=== PATIENT | male | born 1950 | race Caucasian/White ===

== ENCOUNTER 2016-05-30 01:36 | Observation (INO) | payer OTHER ==
--- NOTE | 2016-05-30 01:59 | EDPHY ---
H & P Stated Complaint: [facility] fall on hip HPI/ROS: HPI CHIEF COMPLAINT: Back pain status post mechanical fall HISTORY OF PRESENT ILLNESS: this patient is a 65-year-old male, significant past medical history for COPD, remote history of a lumbar laminectomy, tinnitus , presents emergency room after he sustained a mechanical trip and fall on the ice yesterday at 4:30 a.m.. Tells me he had no head strike. Tells me that he landed on his backside gluteus region and lumbar spine. He tells me initially had pain however he was able to walk it off and tolerated however it has been persistent and getting worse. He describes the pain as sharp stabbing right gluteus posterior right gluteus and paravertebral lumbar region that then radiates down his right gluteus and across his right thigh and into his groin. He denies the pain going blow his knee. He denies leg weakness, denies saddle anesthesia, denies bowel or bladder incontinence. He tells me the pain is quite severe 10/10 sharp stabbing in nature. It is worse when he lays flat it is better when he stands up. It is worse when he moves his right leg. Denies any other areas of trauma. He denies midline lumbar pain. He admits paravertebral lumbar. Past Medical History: COPD, Tinnitus Past Surgical History: remote history of lumbar laminectomy Social History: denies use of drugs alcohol tobacco products Family History: noncontributory ROS REVIEW OF SYSTEMS: A comprehensive 10 point review of systems is otherwise negative aside from elements mentioned in the history of present illness. Exam Constitutional triage nursing summary reviewed, vital signs reviewed, awake/ alert. Eyes normal conjunctivae and sclera, EOMI, PERRLA. HENT normal inspection, atraumatic, moist mucus membranes, no epistaxis, neck supple/ no meningismus, no raccoon eyes. Respiratory clear to auscultation bilaterally, normal breath sounds, no respiratory distress, no wheezing. Cardiovascular rate normal, regular rhythm, no murmur, no edema, distal pulses normal. Gastrointestinal soft, non-tender, no rebound, no guarding, normal bowel sounds, no distension, no pulsatile mass. Genitourinary no CVA tenderness. Musculoskeletal tender palpation paravertebral lumbar region left-sided, also tenderness palpation down the gluteus left cheek midline, good leg strength, able to ambulate and walk, no saddle anesthesia, there is no midline tenderness or crepitus full range of motion, no calf swelling, no tenderness of extremities , no meningismus, good pulses, neurovascularly intact. Skin pink, warm, & dry, no rash, skin atraumatic. Neurologic awake, alert and oriented x 3, AAOx3, moves all 4 extremities equally, motor intact, sensory intact, CN II-XII intact, normal cerebellar, normal vision, normal speech. Psychiatric normal mood/affect. Heme/Lymph/Immune no lymphadenopathy. Differential Diagnosis: includes but is not limited to in a particular order, degenerative joint disease, compression fracture, nerve root compression, annular tear, sciatica Medical Decision Making: this patient had an IV established will be medicated with 100 mcg IV fentanyl for pain control, 2.5 mg IV Valium for muscle spasm, we will obtain a x-ray of the right hip and x-ray of the lumbar spine. This is to rule out compression fracture significant malalignment. Check basic blood work including urinalysis. He will be hydrated IV fluids. We will re-evaluate after pain medicine. Re-evaluation: 0401: Re-examination at this time this patient complaining of back pain initially did get better after 100 mcg IV fentanyl he did receive Dilaudid 1 mg however this did not improve much his back pain is back pain started to get worse. He is requesting more pain medicine. I have ordered him another 200 mcg IV fentanyl, IV Toradol 30 mg, IV Solu-Medrol and Valium. Due to his worsening ongoing back pain he has no acute signs of cauda equina I have ordered MRI. ED x-ray lumbar spine: degenerative joint disease noted, no evidence of compression fracture. Image interpreted by myself ED x-ray right hip Right hip: negative for acute fracture. image interpreted by myself 0440: re-examination at this time this patient is resting comfortably in no acute distress. He feels much better after 200 mcg IV fentanyl, IV Toradol, IV Valium and IV Solu-Medrol. Again he has no signs of acute cauda equina syndrome however given due to severe nature pain ongoing pain unable to ambulate I have ordered an MRI of his lumbar spine. 0607: re-examination: patient is back from MRI he is having ongoing pain. He is requesting more pain medicine. I have ordered him another 1 mg IV Dilaudid and IV Valium 2.5 mg MRI of the lumbar spine without contrast . The results of the study are shows multi degenerative disc disease however nothing explained acute sciatic pain. However on his MRI does show a very large psoas muscle this concerning for possible bleed into the psoas muscle recommend CT abdomen pelvis with IV contrast . I discussed the results of this study with the radiologist Dr. Dixon 0647: reported to me by Dr. Dixon CT scan CT abdomen pelvis with IV contrast this shows a very large right psoas muscle hemorrhage it is 21 cm in length by 8.8 x 7 cm. There is evidence of some retroperitoneal bleed. According to Dr. Dixon there is no brisk bleed at this time on arterial phase however on a 90 second delay there is still some bleeding. 0648: at this time this patient has been moved her ER room to a 2nd IV is being established. He has already been typed and screen his blood pressure is completely stable at this time. I will consult Trauma surgery as well as Interventional Radiology. 0651: Spoke with Dr. Sutton at this time with IR. Recommend admission. Watch closely. Does not feel this is an IR case. 0657: I spoke with Dr. Sim with Trauma surgery. He will see and evaluate this patient. He does recommend admission to the hospital for observation to the psoas muscle hematoma. Currently at this time this patient is hemodynamically stable no acute distress resting comfortably. Pain control. Blood pressure appropriate. He is typed and screened. He has 2 large-bore IVs. Patient understands he will need admission for pain control and observation. EKG interpretation by me on record in [employer] system. Impression time of EKG is 6:53 a.m., this is sinus rhythm rate of 73, no acute ischemic changes. Specifically no ST elevation, ST depression, T-wave abnormalities or prolonged intervals. Unremarkable EKG. Source: Patient - Personal History Current Tetanus/Diphtheria Vaccine: Yes Current Tetanus Diphtheria and Acellular Pertussis (TDAP): Yes - Medical/Surgical History Hx Asthma: No Hx Chronic Respiratory Disease: No Hx Diabetes: No Hx Cardiac Disease: No Hx Renal Disease: No Hx Cirrhosis: No Hx Alcoholism: No Hx HIV/AIDS: No Hx Splenectomy or Spleen Trauma: No Other PMH: hypothyroid, COPD, RA, tinitis, - Social History Smoking Status: Former smoker Constitutional: Initial Vital Signs Temperature (C) 36.4 C 05/30/16 01:45 Heart Rate 62 05/30/16 01:45 Respiratory Rate 18 05/30/16 01:45 Blood Pressure 147/98 H 05/30/16 01:45 O2 Sat (%) 100 05/30/16 01:45 O2 Delivery Mode Nasal Cannula O2 (L/minute) 2 Allergies/Adverse Reactions: No Known Allergies Allergy (Unverified 05/30/16 01:42) Home Medications: Medication Instructions Recorded Ibuprofen [Motrin (*)] 200 - 800 mg PO Q4-6PRN PRN 05/30/16 Levothyroxine [Synthroid 100 mcg 100 mcg PO DAILY06 05/30/16 (*)] Omeprazole [Prilosec 20 mg] 40 mg PO DAILY 05/30/16 oxyCODONE IR [Oxycodone Ir (*)] 10 mg PO Q4HRS PRN #20 tab 05/31/16 Medical Decision Making - Data Points Laboratory Results: Laboratory Results 05/30/16 02:25 05/30/16 02:25 Medications Given: Discontinued Medications Diazepam (Valium Injection) 2.5 mg IVP EDNOW ONE Stop: 05/30/16 02:13 Last Admin: 05/30/16 02:25 Dose: 2.5 mg Diazepam (Valium Injection) 2.5 mg IVP EDNOW ONE Stop: 05/30/16 06:07 Last Admin: 05/30/16 06:34 Dose: Not Given Fentanyl (Sublimaze) 100 mcg IVP EDNOW ONE Stop: 05/30/16 02:12 Last Admin: 05/30/16 02:28 Dose: 100 mcg Fentanyl (Sublimaze) 200 mcg IVP EDNOW ONE Stop: 05/30/16 03:40 Last Admin: 05/30/16 03:45 Dose: 200 mcg Fentanyl (Sublimaze) 100 mcg IVP EDNOW ONE Stop: 05/30/16 05:03 Last Admin: 05/30/16 05:04 Dose: 100 mcg Fentanyl (Sublimaze) 100 mcg IVP EDNOW ONE Stop: 05/30/16 05:30 Last Admin: 05/30/16 06:34 Dose: Not Given Fentanyl (Sublimaze) 200 mcg IVP EDNOW ONE Stop: 05/30/16 07:16 Last Admin: 05/30/16 07:16 Dose: 200 mcg Fentanyl (Sublimaze) 100 mcg IVP EDNOW ONE Stop: 05/30/16 08:16 Last Admin: 05/30/16 08:25 Dose: 100 mcg Hydromorphone HCl (Dilaudid) 1 mg IVP EDNOW ONE Stop: 05/30/16 03:18 Last Admin: 05/30/16 03:26 Dose: 1 mg Hydromorphone HCl (Dilaudid) 1 mg IVP EDNOW ONE Stop: 05/30/16 06:07 Last Admin: 05/30/16 06:34 Dose: 1 mg Hydromorphone HCl (Dilaudid) 1 mg IVP EDNOW ONE Stop: 05/30/16 08:01 Last Admin: 05/30/16 09:18 Dose: 1 mg Sodium Chloride (Ns) 1,000 mls @ 0 mls/hr IV ONCE ONE PRN Reason: Wide Open Stop: 05/30/16 02:12 Last Admin: 05/30/16 02:28 Dose: 1,000 mls Sodium Chloride (Ns) 500 mls @ 0 mls/hr IV ONCE ONE PRN Reason: Wide Open Stop: 05/30/16 03:40 Last Admin: 05/30/16 03:45 Dose: 500 mls Lactated Ringer's (Lr) 1,000 mls @ 125 mls/hr IV CONT YUSRA Stop: 11/26/16 08:29 Last Admin: 05/30/16 11:00 Dose: 1,000 mls Ketorolac Tromethamine (Toradol) 30 mg IVP EDNOW ONE Stop: 05/30/16 03:40 Last Admin: 05/30/16 03:55 Dose: 30 mg Levothyroxine Sodium (Synthroid) 100 mcg PO DAILY06 YUSRA Stop: 11/27/16 09:29 Last Admin: 05/31/16 09:50 Dose: Not Given Methylprednisolone Sodium Succinate (Solu-Medrol) 125 mg IVP EDNOW ONE Stop: 05/30/16 03:40 Last Admin: 05/30/16 03:50 Dose: 125 mg Ondansetron HCl (Zofran) 4 mg IVP EDNOW ONE Stop: 05/30/16 02:12 Last Admin: 05/30/16 02:25 Dose: 4 mg Oxycodone HCl (Oxycontin) 20 mg PO BID [facility] Stop: 06/09/16 08:59 Last Admin: 05/31/16 09:13 Dose: Not Given Oxycodone HCl (Oxycodone Ir) 10 mg PO Q4HRS PRN PRN Reason: Pain, Severe Able to Take PO Stop: 06/09/16 08:26 Last Admin: 05/30/16 17:52 Dose: 10 mg Oxycodone/Acetaminophen (Percocet 5/325) 1 tab PO EDNOW ONE Stop: 05/30/16 08:23 Last Admin: 05/30/16 08:33 Dose: 1 tab Pantoprazole Sodium (Protonix) 40 mg PO DAILY [facility] Stop: 11/27/16 09:29 Last Admin: 05/31/16 09:50 Dose: 40 mg Senna/Docusate Sodium (Senokot-S) 2 tab PO BID [facility] Stop: 11/27/16 09:29 Last Admin: 05/31/16 09:50 Dose: 2 tab Departure - Departure Disposition: [facility] Inpatient Acute Clinical Impression: Hematoma Back pain Qualifiers: Back pain location: low back pain Chronicity: acute Back pain laterality: right Sciatica presence: with sciatica Sciatica laterality: sciatica of right side Qualifier Code: (M54.41) Lumbago with sciatica, right side Psoas muscle strain Qualifiers: Encounter type: initial encounter Laterality: right Qualifier Code: (S76.011A) Strain of muscle, fascia and tendon of right hip, initial encounter Condition: Good
[2016-05-30] MEDS ORDERED: fentaNYL 100 MCG/2 ML INJ ONE ×3 (02:11→07:13)
[2016-05-30] MEDS ORDERED: ONDANSETRON 4 MG/2 ML VIAL IVP ONE (02:11)
[2016-05-30] MEDS ORDERED: fentaNYL 100 MCG/2 ML INJ IVP ONE ×5 (02:11→08:15)
[2016-05-30] MEDS ORDERED: NS 1,000 ML IV ONE (02:11)
[2016-05-30] MEDS ORDERED: DIAZEPAM 10 MG/2 ML SYR IVP ONE ×2 (02:12→06:06)
[2016-05-30 02:36] LABS: % IMMATURE GRANULYOCYTES 0.4 % (0.0-1.1); ABSOLUTE IMMATURE GRANULOCYTES 0.05 10^3/uL (0.00-0.10); ADD DIFF? NO; ADD MORPH? NO; ADD SCAN? NO; ATYPICAL LYMPHOCYTE FLAG 0 (0-99); FRAGMENT RBC FLAG 0 (0-99); HEMATOCRIT 41.7 % (40.0-51.0); LEFT SHIFT FLG 10 (0-99); LIPEMIA HEMOLYSIS FLAG 90 (0-99); MEAN CELL VOLUME 91.9 fL (81.5-99.8); PLATELET CLUMPS FLAG 30 (0-99); PLATELET COUNT 213 10^3/uL (150-400); RED BLOOD CELL COUNT 4.54 10^6/uL (4.40-6.38); RED CELL DISTRIBUTION WIDTH 13.3 % (11.5-15.2)
[2016-05-30 02:54] LABS: CALCIUM 9.6 mg/dL (8.5-10.4); POTASSIUM 4.2 mEq/L (3.5-5.2); SODIUM 141 mEq/L (134-144)
[2016-05-30 02:55] LABS: ANION GAP 14 mEq/L (8-16); CARBON DIOXIDE 20 mEq/l (22-31); CHLORIDE 107 mEq/L (97-110); CREATININE 0.8 mg/dL (0.7-1.3); GLOMERULAR FILTRATION RATE > 60; GLUCOSE 126 mg/dL (70-100)
[2016-05-30] MEDS ORDERED: HYDROmorphONE/DILAUDID 1 MG/ML SYR IVP ONE ×3 (03:17→08:00)
[2016-05-30 03:27] LABS: COLOR YELLOW; LEUKOCYTE ESTERASE,URINE NEGATIVE (NEGATIVE); NITRITE,URINE NEGATIVE (NEGATIVE)
[2016-05-30] MEDS ORDERED: KETOROLAC 30 MG/1 ML SDV IVP ONE (03:39)
[2016-05-30] MEDS ORDERED: NS 500 ML IV ONE (03:39)
[2016-05-30] MEDS ORDERED: methylPREDNISolone SOD SUCC 125 MG/2 ML VIAL IVP ONE (03:39)
[2016-05-30] MEDS: fentaNYL 100 MCG/2 ML INJ IVP ONE ×2 (05:35→06:34)
[2016-05-30] MEDS ORDERED: IOPAMIDOL (ISOVUE-300) 100 ML BTL IV ONE (06:15)
[2016-05-30 06:43] LABS: APTT 25.8 SEC (23.0-38.0); INR 1.04 (0.83-1.16); PROTIME(PATIENT) 13.5 SEC (12.0-15.0)
--- NOTE | 2016-05-30 07:24 | CT ---
MRI Lumbar Spine (Without Contrast) History: Severe low back pain with right radiculopathy. Technique: Sagittal and axial T1 and T2 second echo imaging with fat suppression. Sagittal STIR images. Findings: There is marked enlargement of the right psoas muscle which is edematous and likely associated with a large psoas muscle acute hemorrhage that is incompletely included on this examination. In the differential is a psoas muscle abscess and tumor. This is superimposed upon multilevel degenerative lumbar disk disease. The largest disk is at the L1-L2 level where there is a moderate central soft disk protrusion, that does not cause severe central canal impingement.. The conus medullaris occurs at L1 and appears normal. All neural foramina remain patent with moderate degenerative narrowing on the left only at L3-L4 and L4-L5. There are no lumbar compression abnormalities. There is no significant bone marrow edema or evidence for discitis.. There are several disks protruding into the prevertebral soft tissues t. There are anterior osteophytes protruding into the prevertebral tissues at all levels. Impression: Suspect spontaneous right psoas muscle hematoma. Doubt abscess or tumor. Recommend multiphase CT with IV contrast for further evaluation. Results called to Dr. Warren at 6:10 a.m. Final results are concordant with the initial interpretation. POS99 MTDD
--- NOTE | 2016-05-30 07:32 | CT ---
CT Scan of the Abdomen and Pelvis With Contrast, Extended Study, Dual Phase Clinical Indications: Severe right hip pain, enlarged right psoas muscle on MRI , possible hemorrhage versus abscess. Technique: [address] through the abdomen and pelvis during the arterial phase after a 25 second delay and then after a 90 second delay. Contrast was 97 mL of Isovue-300 which were injected intravenously without complication. Dose reduction techniques were utilized. Comparison: MRI done earlier. Findings: There is marked enlargement of the right psoas muscle with a dense hematoma within the psoas muscle measuring nearly 21 cm in length x 8 cm in AP diameter x 7 cm in width. No active contrast extravasation is seen during the arterial phase, however, after a 90 second delay, there are small areas of active hemorrhage present within the lower portion of the hematoma at the level of the L4-L5 disk space. Hemorrhage has broken out of the psoas muscle into the adjacent posterior retroperitoneum which then slightly extends into the right posterior paracolic gutter. The right kidney is mildly elevated but otherwise not affected. There is also a small amount of hemorrhage that has broken out of the psoas muscle and courses anterior to the inferior vena cava and aorta. There is no peritoneal hemorrhage. There is no free fluid in the pelvis, although a small amount of hemorrhage does extend medial to the right external iliac artery and vein. The remainder of the abdomen and pelvis is unremarkable, except for atherosclerotic calcification of a normal sized abdominal aorta. There are no basilar or pleural effusions. What was thought to be a small pleural effusion on the patient's MRI is actually the upper portion of retroperitoneal hematoma. Impression: Large right psoas muscle hematoma with active bleeding still occurring. Results discussed with Dr. Warren. Final results are concordant with the initial interpretation. General information for patients regarding this examination can be found at [email or web address]. If you have questions or comments about this report, please contact me at (hospital) or [phone] (cell). POS99 MTDD
[2016-05-30] MEDS ORDERED: OXYCODONE/APAP 5/325 TAB PO ONE (08:22)
[2016-05-30] MEDS ORDERED: DIAZEPAM 5 MG TAB PO PRN (08:25)
[2016-05-30] MEDS ORDERED: ONDANSETRON 4 MG/2 ML VIAL IVP PRN (08:25)
[2016-05-30] MEDS ORDERED: ZOLPIDEM TARTRATE 5 MG TAB PO PRN (08:25)
[2016-05-30] MEDS ORDERED: LR 1,000 ML IV SCH (08:30)
--- NOTE | 2016-05-30 08:47 | GHP ---
[f rep st] HISTORY AND PHYSICAL DATE OF ADMISSION: 05/30/2016 HISTORY OF PRESENT ILLNESS: The patient is a 65-year-old man who slipped and fell on the ice yesterd ay afternoon. He denied loss of consciousness or hitting his head. He complained of right hip pain radiating down his thigh, that became progressively more severe overnight. PAST MEDICAL HISTORY: Tendinitis, COPD, hypothyroidism, rheumatoid arthritis, gastroesophageal reflu x disease. PAST SURGICAL HISTORY: He has had lumbar laminectomy. MEDICATIONS: He takes levothyroxine, omeprazole, ibuprofen, prednisone, [place], Valium. ALLERGIES: He has no known drug allergies. FAMILY HISTORY: His father of bone cancer. Mother of heart disease. Brother also has hea rt disease. SOCIAL HISTORY: He quit smoking over 20 years ago. REVIEW OF SYSTEMS: He denied headache, pleuritic chest pain, abdominal pain. He complained of nause a and right hip pain radiating down his thigh. PHYSICAL EXAM: VITAL SIGNS: His temperature is 36.4, pulse 75, blood pressure 154/95, respiratory r ate is 16. He is satting 94% on 2 L per nasal cannula. GCS is 15. EYES: Pupils are equal, round. He is moving all extremities. HEAD: Normocephalic, atraumatic. Midface is stable. He has no ariel cclusion. NECK: Trachea is midline. He has no jugular venous distention. BACK: CTL and S spines are nontender without step-offs. CHEST: He has equal breath sounds bilaterally. HEART: Regular ra te and rhythm. ABDOMEN: Soft, with very mild tenderness to deep palpation in the right lower quadra nt. PELVIS: Stable. NEUROLOGIC: He has no gross deformities of upper or lower extremities. He baron s equal strength in bilateral upper and lower extremities grossly. He has palpable radial pulses. LABORATORY DATA: White count is 14, hematocrit 42, platelets 213. INR is 1, creatinine is 0.8. ASSESSMENT: Status post fall from standing on ice with right psoas hematoma. There is no evidence o f active extravasation of contrast on CT scan. He will be admitted however for pain control and seri al exams. /[id number]/MODL
--- NOTE | 2016-05-30 08:49 | DX ---
Right Hip , 2 views History: Severe spontaneous pain, no trauma. Findings: The femoral head is well rounded and normally located. No fracture or dislocation is identi fied. The hip joint cartilage spaces are symmetric and normal. There is hypertrophic change of each g reater trochanter, iliac crest and ischial tuberosity, suspicious for DISH. The lower lateral margin of the right psoas muscle is less well-defined than that on the left. There is degenerative change of the L4-L5 disk space, greater to the right of midline. Impression: 1. Negative right hip. 2. Ill-defined lower right psoas muscle consistent with subsequently identified psoas muscle hematoma .
--- NOTE | 2016-05-30 08:51 | DX ---
Lumbar Spine, 2 views History: Severe right-sided pain with radiculopathy Comparison: None Findings: Alignment is anatomic. There are no compression abnormalities. There is degenerative narrow ing of the disks at L4-L5 and L5-S1. Mineralization is normal. There are prominent anterior osteophyt es present between T12 and L5. There is hypertrophic enlargement of the spinous processes which are t ouching each other between L3 and L5. There is atherosclerotic calcification of a normal sized abdomi nal aorta. The SI joints look normal. Impression: Multilevel degenerative change.
[2016-05-30] MEDS: oxyCODONE IR 5 MG TAB PO PRN ×3 (09:19→17:52)
[2016-05-30 13:17] LABS: % IMMATURE GRANULYOCYTES 0.4 % (0.0-1.1); ABSOLUTE IMMATURE GRANULOCYTES 0.05 10^3/uL (0.00-0.10); ADD DIFF? NO; ADD MORPH? NO; ADD SCAN? NO; ATYPICAL LYMPHOCYTE FLAG 0 (0-99); FRAGMENT RBC FLAG 0 (0-99); HEMOGLOBIN 13.2 g/dL (13.7-17.5); LEFT SHIFT FLG 0 (0-99); LIPEMIA HEMOLYSIS FLAG 90 (0-99); MEAN CELL HEMOGLOBIN 33.3 pg (27.9-34.1); MEAN CELL HEMOGLOBIN CONCENTR. 35.7 g/dL (32.4-36.7); MEAN CELL VOLUME 93.4 fL (81.5-99.8); MEAN PLATELET VOLUME 9.3 fL (8.7-11.7); PLATELET CLUMPS FLAG 0 (0-99); PLATELET COUNT 201 10^3/uL (150-400); RED BLOOD CELL COUNT 3.96 10^6/uL (4.40-6.38); RED CELL DISTRIBUTION WIDTH 13.5 % (11.5-15.2)
[2016-05-30 18:47] LABS: % IMMATURE GRANULYOCYTES 0.5 % (0.0-1.1); ABSOLUTE IMMATURE GRANULOCYTES 0.08 10^3/uL (0.00-0.10); ADD DIFF? NO; ADD MORPH? NO; ADD SCAN? NO; ATYPICAL LYMPHOCYTE FLAG 10 (0-99); FRAGMENT RBC FLAG 0 (0-99); HEMATOCRIT 36.2 % (40.0-51.0); HEMOGLOBIN 12.5 g/dL (13.7-17.5); LEFT SHIFT FLG 10 (0-99); LIPEMIA HEMOLYSIS FLAG 90 (0-99); MEAN CELL HEMOGLOBIN 32.4 pg (27.9-34.1); MEAN CELL HEMOGLOBIN CONCENTR. 34.5 g/dL (32.4-36.7); MEAN CELL VOLUME 93.8 fL (81.5-99.8); MEAN PLATELET VOLUME 8.9 fL (8.7-11.7); PLATELET CLUMPS FLAG 0 (0-99); PLATELET COUNT 184 10^3/uL (150-400); RED BLOOD CELL COUNT 3.86 10^6/uL (4.40-6.38); RED CELL DISTRIBUTION WIDTH 13.9 % (11.5-15.2)
[2016-05-31 02:01] LABS: % IMMATURE GRANULYOCYTES 0.3 % (0.0-1.1); ABSOLUTE IMMATURE GRANULOCYTES 0.04 10^3/uL (0.00-0.10); ADD DIFF? NO; ADD MORPH? NO; ADD SCAN? NO; ATYPICAL LYMPHOCYTE FLAG 10 (0-99); FRAGMENT RBC FLAG 0 (0-99); HEMATOCRIT 34.1 % (40.0-51.0); HEMOGLOBIN 11.9 g/dL (13.7-17.5); LEFT SHIFT FLG 0 (0-99); LIPEMIA HEMOLYSIS FLAG 90 (0-99); MEAN CELL HEMOGLOBIN 33.5 pg (27.9-34.1); MEAN CELL HEMOGLOBIN CONCENTR. 34.9 g/dL (32.4-36.7); MEAN CELL VOLUME 96.1 fL (81.5-99.8); MEAN PLATELET VOLUME 9.1 fL (8.7-11.7); PLATELET CLUMPS FLAG 0 (0-99); PLATELET COUNT 161 10^3/uL (150-400); RED BLOOD CELL COUNT 3.55 10^6/uL (4.40-6.38); RED CELL DISTRIBUTION WIDTH 13.8 % (11.5-15.2)
[2016-05-31 07:57] VITALS: BP 115/66; PULSE 60; RESP 17; TEMP 98.8; O2SAT 98
[2016-05-31 08:24] LABS: % IMMATURE GRANULYOCYTES 0.4 % (0.0-1.1); ABSOLUTE IMMATURE GRANULOCYTES 0.04 10^3/uL (0.00-0.10); ADD DIFF? NO; ADD MORPH? NO; ADD SCAN? NO; ATYPICAL LYMPHOCYTE FLAG 10 (0-99); FRAGMENT RBC FLAG 0 (0-99); HEMATOCRIT 33.8 % (40.0-51.0); HEMOGLOBIN 11.8 g/dL (13.7-17.5); LEFT SHIFT FLG 0 (0-99); LIPEMIA HEMOLYSIS FLAG 90 (0-99); MEAN CELL HEMOGLOBIN 33.2 pg (27.9-34.1); MEAN CELL HEMOGLOBIN CONCENTR. 34.9 g/dL (32.4-36.7); MEAN CELL VOLUME 95.2 fL (81.5-99.8); MEAN PLATELET VOLUME 9.2 fL (8.7-11.7); PLATELET CLUMPS FLAG 0 (0-99); PLATELET COUNT 150 10^3/uL (150-400); RED BLOOD CELL COUNT 3.55 10^6/uL (4.40-6.38); RED CELL DISTRIBUTION WIDTH 13.8 % (11.5-15.2)
[2016-05-31] MEDS ORDERED: IBUPROFEN 200 MG TAB PO PRN (09:11)
--- NOTE | 2016-05-31 09:11 | PDDCSUM ---
Discharge Summary Discharge Summary: DOA 05/30/16 DOD 05/31/16 DC diagnosis: s/p fall right psoas hematoma hx RA hx hyperlipidemia hx hypothyroidism Course: For details of history and physical please see Dr. Bazzi's summary. Pt was admitted for observation after he was found to have a significant right psoas hematoma. The fall occurred on the afternoon prior to admission. His Hgb/HCT stabilized after initial hydration and on the morning of discharge he was hemodynamically stable with improved pain. He was advanced in his diet and discharged home to follow up as an outpatient. DC meds: Oxy IR 10 mg po q 4 hours prn severe pain #20 Senokot-S 1 po BID #30 Resume pre-hopsital meds per med reconciliation Tc Wood MD, FACS
[2016-05-31] MEDS ORDERED: NON-FORMULARY NEW DRUG (Omeprazole [Prilosec 20 Mg] 40 MG) PO SCH (09:15)
[2016-05-31] MEDS ORDERED: LEVOTHYROXINE 100 MCG TAB PO SCH (09:30)
[2016-05-31] MEDS ORDERED: SENNOSIDES/DOCUSATE SODIUM TAB PO SCH (09:30)
[2016-05-31] MEDS ORDERED: PANTOPRAZOLE SODIUM 40 MG TAB PO SCH (09:30)
--- NOTE | 2016-06-01 07:22 | CPEKG ---
Heart Rate: 73 RR Interval: 822 P-R Interval: 192 QRSD Interval: 88 QT Interval: 416 QTC Interval: 459 P [place]: 55 QRS [place]: 49 T Wave [place]: 69 EKG Severity - NORMAL ECG - EKG Impression: SINUS RHYTHM Electronically Signed By: Miky Novoa 02-Jun-2016 19:34:33
== END 2016-05-31 12:09 | disposition home or self-care (01) ==
LOC: INTOOBSV 06:54 → F3E 14:54
PROVIDERS: ADMIT Surgery; ATTEND Surgery
DX: S30.0XXA Contusion of lower back and pelvis, initial encounter (principal); M25.551 Pain in right hip; W00.0XXA Fall on same level due to ice and snow, initial encounter; J44.9 Chronic obstructive pulmonary disease, unspecified; E03.9 Hypothyroidism, unspecified; H93.19 Tinnitus, unspecified ear; E78.5 Hyperlipidemia, unspecified; M06.9 Rheumatoid arthritis, unspecified; K21.9 Gastro-esophageal reflux disease without esophagitis; Z87.891 Personal history of nicotine dependence
CPT/HCPCS: 72100; 72148; 73502; 74177; 93005; G0378; J1170; J1885; J2405; J3010; Q9967; 96374